=== PATIENT | male | born 1960 | race Caucasian/White ===

== ENCOUNTER 2018-01-25 15:57 | Inpatient (IN) | payer OTHER ==
[~2018-01-25] VITALS: Ht 185.4 cm; Wt 98.5 kg
[2018-03-09] VITALS (14 sets, daily range): BP systolic 96–133; BP diastolic 65–88; PULSE 57–85; TEMP 97.2–98.4
[2018-03-10 04:20] VITALS: BP 108/76; PULSE 69; TEMP 97.9
[2018-03-10 07:39] VITALS: BP 126/83; PULSE 71; TEMP 98.3
[2018-03-10 08:11] VITALS: TEMP 98.3
[2018-03-10 12:12] VITALS: BP 110/76; PULSE 70; TEMP 97.7
[2018-03-10 16:39] VITALS: BP 126/79; PULSE 71; TEMP 97.7
[2018-03-10 20:20] VITALS: BP 125/75; PULSE 75; TEMP 98.1
[2018-03-11 00:07] VITALS: BP 114/68; PULSE 66; TEMP 98.2
[2018-03-11 04:08] VITALS: BP 112/74; PULSE 66; TEMP 98.2
[2018-03-11 07:49] VITALS: BP 118/76; PULSE 72; TEMP 97.8
== END 2018-03-11 10:55 | disposition home or self-care (01) | DRG 708 ==
LOC: INPTSU 03-09 05:27 → EDBD 03-09 07:30 → SURG 03-09 07:30
PROVIDERS: Urology
PROC: 0VT00ZZ Resection of Prostate, Open Approach (ICD-10-PCS; principal; 2018-03-09 07:30)
DX: C61 Malignant neoplasm of prostate (principal)
CPT/HCPCS: A9284; J0690; J1100; J1940; J2250; J2370; J2405; J2704; J2710; J2795; J3010; J3480; J7050; J7120